=== PATIENT | female | born 1990 | race Caucasian/White ===

== ENCOUNTER 2020-04-22 10:12 | Outpatient (CLI) | payer OTHER, SELFPAY ==
--- NOTE | ~2020-04-22 | XR_ITS ---
EXAMINATION: XR hysterosalpingogram INDICATION: Infertility assessment TECHNIQUE: Hysterosalpingogram was performed by Dr. Dillon Barros MD with fluoroscopic guidance . I was present to obtain fluoroscopic images. Fluoroscopy exposure time was 0.4 minutes. The DAP for this procedure was 2.632 Gycm2. FINDINGS: Primer Boxer radiograph demonstrates an unremarkable pelvis. Fluoroscopic images demonstrate a no rmal appearing endometrial cavity which has been cannulated. Upon injection of contrast, both fallop bette tubes opacify and are normal in appearance. There is free spillage bilaterally. Uterus is withou t evidence of synechia. IMPRESSION: Patent fallopian tubes. Reviewed, dictated and finalized at location A. 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
== END 2020-04-22 10:13 | disposition home or self-care (01) ==
LOC: ANHIMG 10:19
PROVIDERS: PCP Nurse Practitioner Family; Visit Provider Obstetrics & Gynecology
DX: N97.9 Female infertility, unspecified (principal)
CPT/HCPCS: 58340; 74740; Q9966

== ENCOUNTER 2022-04-07 09:33 | Outpatient (CLI) | payer BC, SELFPAY ==
--- NOTE | 2022-04-07 10:00 | ECG_ITS ---
Measurements Intervals [place] Rate: 79 P: 19 GA: 134 QRS: -15 QRSD: 101 T: 26 QT: 363 QTc: 418 Interpretive Statements SINUS RHYTHM BORDERLINE R WAVE PROGRESSION, ANTERIOR LEADS BASELINE ARTIFACT- III BORDERLINE ECG NO PREVIOUS ECG AVAILABLE FOR COMPARISON Electronically Signed On 04-07-2022 10:38:50 [facility] [employer]MER by Lorenzo Cuevas D.O.
[2022-04-07 10:10] LABS: Hematocrit 37.5 % (37.0-47.0); Hemoglobin 12.2 g/dL (12.0-15.0); Mean Corpuscular HGB Conc 32.5 g/dl (32-36); Mean Corpuscular Hemoglobin 31.4 pg (26-34); Mean Corpuscular Volume 96.4 fl (80-100); Mean Platelet Volume 9.4 fl (7.4-10.4); Platelet Count Result 318 k/mm3 (150-375); Red Blood Count 3.89 M/mm3 (4.2-5.4); Red Cell Distribution Width 12.7 % (11.5-14.5)
[2022-04-07 10:22] LABS: Anion Gap 8 mmol/L (8-16); Blood Urea Nitrogen 12 mg/dL (7-17); Calcium 9.3 mg/dL (8.4-10.2); Carbon Dioxide 27 mmol/L (22-30); Chloride 102 mmol/L (98-107); Estimated Glomerular Filt Rate > 60; Glucose 95 mg/dL (65-110); Potassium 3.8 mmol/L (3.4-5.0); Sodium 137 mmol/L (137-145)
== END 2022-04-07 09:34 | disposition home or self-care (01) ==
LOC: ANHSURGERY 09:39
PROVIDERS: Anesthesiology; PCP Nurse Practitioner Family; Visit Provider Student in an Organized Health Care Education/Training Program
DX: Z01.810 Encounter for preprocedural cardiovascular examination (principal); Z01.812 Encounter for preprocedural laboratory examination; D25.9 Leiomyoma of uterus, unspecified; I10 Essential (primary) hypertension; Z79.899 Other long term (current) drug therapy; N93.9 Abnormal uterine and vaginal bleeding, unspecified
CPT/HCPCS: 36415; 80048; 84443; 85027; 86850; 86900; 86901; 93005

== ENCOUNTER 2022-04-09 00:43 | Day surgery (SDC) | payer BC, SELFPAY ==
[2022-04-03 08:31] VITALS: BMI 46.9
--- NOTE | 2022-04-03 08:40 | PC.NURSE ---
Report to the Outpatient Waiting Room, entrance under the green pavilion located off [facility], at time 12:30 on date 04/09/22. Planned Procedure Time: 2:30. Time changes happen often and if your time is changed the preop area will call you the afternoon before. - You and your visitor will be asked to self-screen and do not enter if you have any COVID symptoms. - Only one visitor is requested with a max of two and NO children visitors are allowed at this time. - The patient visitor may be requested to leave or wait in car when not with patient due to distancing restrictions. - A mask is optional within the hospital at this time. Patients may have clear liquids (water, carbonated beverages, clear teas, apple juice) until 3 hours prior to surgery with a maximum of 20 ounces. - No food from midnight until time of surgery Take the following medications with a SIP of water the morning of surgery: NONE DO NOT STOP ANY OF YOUR OTHER PRESCRIPTION MEDICATIONS PRIOR TO SURGERY EXCEPT THE FOLLOWING Medications to discontinue per physician: N/A Date to take last dose: N/A Please no make-up, nail [place], hairspray, perfume, deodorant, or body powder the day of surgery. No jewelry (including any body piercings) or valuables the day of surgery, leave them at home. Please take a shower or bath the night before, or the morning of, surgery with an antibacterial soap. Wear comfortable, loose fitting clothing. - Jewelry must be removed prior to entering the operating room. Rings and piercings that are not removed may be cut off. - The hospital will not accept responsibility for valuables. - Please leave all valuables, including medications, at home the day of surgery. If you are going home after surgery, a licensed otr driver must drive you home. - NO public transportation without another adult if you receive anesthesia. - We recommend that an adult stay with you for 24 hours following discharge. - We also recommend that you do not drive, make important decision, drink alcoholic beverages, or take any drugs that were not prescribed by your health care provider for at least 24 hours after your discharge time. Follow any additional instructions given to you from your surgeon. If you or anyone in your household have experienced Covid symptoms in the past week, please notify your surgeon or the nurse liaison at the phone number below for possible testing. Telephone instructions given to PT - PEPE ARIZMENDI and asked if any additional questions and then verbalized understanding. Patient advised to call surgeon office or pre surgery nurse liaison [phone] if any additional questions.
[2022-04-09] VITALS (11 sets, daily range): BP systolic 122–144; BP diastolic 75–94; PULSE 62–113; RESP 12–22; TEMP 36.3–36.7; O2SAT 99–100
--- NOTE | 2022-04-09 07:49 | PM.IMHP ---
H&P: HPI History of Present Illness Date/Time: 04/09/22 07:49 Chief Complaint: abnormal uterine bleeding uterine fibroid Narrative: ?32-year-old female here for robotic assisted hysterectomy for abnormal uterine bleeding.? Patient had pelvic ultrasound which showed uterine fibroids.? Patient has been taking oral contraceptive pills in continuous fashion.? Patient still has continuous breakthrough bleeding.? Patient states bleeding is improved but still requires a pad daily.? Patient is requesting hysterectomy.? Patient no longer desires fertility.? Patient has tried oral contraceptive pills and D&C in the past.? Patient is not interested in endometrial ablation. Review of Systems Cardiovascular: Cardiovascular: Denies chest pain, Denies leg edema, Denies palpitations, Denies dyspnea and Denies dyspnea on exertion Respiratory: Respiratory: Denies cough, Denies dyspnea and Denies dyspnea on exertion Gastrointestinal: Gastrointestinal: Denies abdominal pain, Denies constipation, Denies diarrhea, Denies nausea and Denies vomiting Genitourinary: Genitourinary: Denies hematuria, Denies urinary frequency, Denies dysuria, Denies pelvic pain, Denies urinary incontinence and Denies vaginal discharge Neurologic: Reports system reviewed and no additional complaints, except as documented Psychiatric: Psychiatric: Reports no additional psychiatric complaints Endocrine: Endocrine: Denies palpitations PMFSH Past Medical History Medical History Depression Herpes simplex disease Hypertension Surgical History Surgical History History of ankle surgery History of carpal tunnel release History of delivery History of tonsillectomy [place] teeth extracted Family History Family History Mother Hypertension Grandparent Hypertension Heart disease Father Heart disease Other Cerebrovascular accident Other Diabetes mellitus Social History Social History Smoking status: Never smoker Alcohol intake: current Alcohol use details: 2/MONTH Substance use: never Substance use type: does not use Living arrangements: with family Occupation/Education: occupation 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 Gender identity (if verbalized by the patient): Female Sexual Orientation (if Verbalized by the Patient): Straight or Heterosexual Spiritual care concerns: No Meds Home Medications and Allergies Home Medications Medication Instructions Recorded Confirmed Type bupropion HCl 150 mg tablet,12 hr 150 mg PO HS 03/16/22 04/03/22 History sustained-release (Wellbutrin SR) hydrochlorothiazide 25 mg tablet 25 mg PO DAILY 03/16/22 04/03/22 History metformin 500 mg tablet 500 mg PO HS 03/16/22 04/03/22 History phentermine 30 mg capsule 30 mg PO DAILY 03/16/22 04/03/22 History valacyclovir 500 mg tablet 500 mg PO HS 03/16/22 04/03/22 History (Valtrex) drospiren-e.estrad-l.mefol 3 1 tablet PO DAILY #84 tabs 03/20/22 04/03/22 Rx mg-0.02 mg-0.451 mg(24)/0.451 mg(4)tablet Allergies Allergy/AdvReac Type Severity Reaction Status Date / Time No Known Allergies Allergy Verified 04/07/22 08:48 Exam Const: General: no acute distress Eyes: EOM: EOMs intact bilaterally Neck: Neck: supple Thyroid: thyroid normal Chest: Breast/axilla inspection: normal inspection of the breasts Breast/axilla palpation: normal palpation of the breasts, normal palpation of the axillae and no axillary lymphadenopathy Resp: Effort & Inspection: normal respiratory effort Auscultation: clear to auscultation bilaterally Cardio: Rate: regular rate Rhythm: regular rhythm GI: Inspection: non-distended GI Palp: Yes Soft to palpation, No Tenderness to palpation present (GI) and No Guarding
--- NOTE | 2022-04-09 07:50 | WPDHPUPDATE1 ---
History and Physical Update Update Date/Time: 04/09/22 07:50 History and Physical has been reviewed, including an updated exam of the patient. There are NO changes in the patient's condition. Risks, benefits, and alternatives have been discussed and questions answered. Patient agrees to proceed with procedure.
[2022-04-09] MEDS: LACTATED RINGERS 1,000 ML 30 ML IV CONT ×2 (13:00→15:32)
[2022-04-09] MEDS: KETOROLAC 15 MG/ML VIAL (*BKC) IV PUSH (13:28)
[2022-04-09] MEDS: ACETAMINOPHEN 500 MG TABLET 1000 MG PO (13:28)
--- NOTE | 2022-04-09 13:45 | WPDANESEPPF ---
Anes - Initial Pre Proc Eval Procedure: Operation Date: 04/09/22 14:30 Proposed Procedures p Robotic Assisted Total Laparoscopic Hysterectomy with Bilateral Salpingectomy - Lenny Rose MD Date/Time: 04/09/22 13:45 Surgeon: Lenny Rose MD Pre Op Diagnosis: Uterine Fibroid Patient Data Age: 32 Gender: F Height: 1.65 m Weight: 129.5 kg Last Vital Signs Temp 97.3 F L 04/09/22 13:25 Pulse 83 04/09/22 13:25 Resp 16 04/09/22 13:25 BP 129/75 04/09/22 13:25 Pulse Ox 100 04/09/22 13:25 O2 Del Method Room Air 04/09/22 13:25 Allergies Allergy/AdvReac Type Severity Reaction Status Date / Time No Known Allergies Allergy Verified 04/09/22 13:23 Home Medications Medication Instructions Recorded Confirmed Type bupropion HCl 150 mg tablet,12 hr 150 mg PO HS 03/16/22 04/09/22 History sustained-release (Wellbutrin SR) hydrochlorothiazide 25 mg tablet 25 mg PO DAILY 03/16/22 04/09/22 History metformin 500 mg tablet 500 mg PO HS 03/16/22 04/09/22 History phentermine 30 mg capsule 30 mg PO DAILY 03/16/22 04/09/22 History valacyclovir 500 mg tablet 500 mg PO HS 03/16/22 04/09/22 History (Valtrex) drospiren-e.estrad-l.mefol 3 1 tablet PO DAILY #84 tabs 03/20/22 04/09/22 Rx mg-0.02 mg-0.451 mg(24)/0.451 mg(4)tablet Patient hx anesthesia problems: post op nausea/vomiting Family hx anesthesia problems: none Results Review: All pre-operative results and documents have been reviewed as part of the pre-operative evaluation. [facility] Past Medical History Medical History Depression Herpes simplex disease Hypertension Surgical History Surgical History History of ankle surgery History of carpal tunnel release History of delivery History of tonsillectomy [place] teeth extracted Family History Family History Mother Hypertension Grandparent Hypertension Heart disease Father Heart disease Other Cerebrovascular accident Other Diabetes mellitus Social History Social History Smoking status: Never smoker Alcohol intake: current Alcohol use details: 2/MONTH Substance use: never Substance use type: does not use Living arrangements: with family Occupation/Education: occupation 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 Gender identity (if verbalized by the patient): Female Sexual Orientation (if Verbalized by the Patient): Straight or Heterosexual Spiritual care concerns: No Anes - Eval Final PreProcedure Day of Procedure 04/09/22 13:45 Patient weight: morbidly obese Heart: regular rate and rhythm Lungs: clear to auscultation Airway: Mallampati scale class III Neurological: alert and oriented Last oral intake: >/= 8 hours ASA classification: III Emergent: no Anesthetic plan: proceed Anesthesia type and monitoring: general ETT and standard monitoring Results Review: All pre-operative results and documents have been reviewed as part of the pre-operative evaluation. Informed Consent: The patient's anesthetic plan and its attendant risks and benefits were discussed with the patient/family/POA. Questions were solicited and answers provided to the satisfaction of the patient/family/POA.
[2022-04-09] MEDS: SCOPOLAMINE 1.5 MG PATCH TRANSDERM (13:55)
[2022-04-09] MEDS: ceFAZolin 3 GM/D5W 100 ML 100 ML IVPB (14:01)
[2022-04-09] MEDS: LIDO 2%/EPINEPHRINE 1:100,000 50 ML VIAL 20 ML INFILTRATE (14:49)
--- NOTE | 2022-04-09 15:17 | W.PM.PROC2 ---
Procedure Note - Detailed Date of Procedure 04/09/22 Pre-op Diagnosis Uterine Fibroid abnormal uterine bleeding Post-op Diagnosis Same Procedure Performed robotic assisted total laparoscopic hysterectomy and bilateral salpingectomy 15 min lysis of adhesions Surgeon Lenny Rose MD Anesthesia General Indications AUB uterine fibrod Findings filmy adhesions noted between the uterine serosa and the pelvic sidewall and anterior abdominal wall. Omental adhesions to the anterior abdominal wall. Umbilical hernia noted. Congested pelvic vessels. Normal appearing fallopian tubes and ovaries. Description of Procedure After the patient was appropriately consented she was taken to the operating room where she was transferred to the table in a dorsal supine position. General anesthesia was then induced with endotracheal intubation. The patient was transferred to a dorsal lithotomy position using adjustable yellow-fin stirrups. Her position was adjusted for appropriate support of her lower back and lower extremities. The patient was prepped and draped. A transurethral steward catheter was place. The cervix was sequentially dilated and a Artemio fruit washer uterine manipulator placed in typical fashion about a 3 cm MUSTAPHA ring. Gloves were changed. After confirmation of a functioning orogastric tube, lidocaine was injected at Ruelas's point in the LUQ and a 5mm incision was made. A 5mm Optiview trocar was then inserted into the abdominal cavity under direct visualization and done so without complication. The abdomen was then insufflated with approximately 2-3L of CO2 establishing a pneumoperitoneum and the patient was placed in Trendelenburg position. Just above the umbilicus in the midline, a 8 mm incision made after injection of lidocaine and a 8 mm bladeless trocar advanced into the abdominal cavity under direct visualization without incident. We subsequently placed two robotic ports in a similar fashion, one in the left mid-quadrant and one in the right, 10cm lateral to the midline port. The camera ports visualization was limited due to omental adhesions at the site of the umbilical hernia. These adhesions were taken down with monopolar scissors. The robot was then docked. Attention was turned to the left pelvis. The left fallopian tube was removed by sequentially dividing the mesosalpinx towards the uterus sparing the ovary. The utero-ovarian ligament was desiccated and transected, as was the round ligament. The posterior peritoneal leaf was taken down to the MUSTAPHA ring. The anterior leaf was developed as well as the start of the bladder flap. The left uterine artery was then skeletonized and desiccated and transected just above the level of the MUSTAPHA ring. Attention was turned to the right pelvis. The right fallopian tube was removed by sequentially dividing the mesosalpinx towards the uterus sparing the ovary. The utero-ovarian ligament was desiccated and transected, as was the round ligament. The posterior peritoneal leaf was taken down to the MUSTAPHA ring. The anterior leaf was developed as well as the start of the bladder flap. The right uterine artery was then skeletonized and desiccated and transected just above the level of the MUSTAPHA ring. The bladder was then further dissected inferiorly over the level of the MUSTAPHA ring. A circumferential colpotomy was made using monopolar current. The uterus, cervix, bilateral tubes were then delivered transvaginally. I then placed a single figure of eight suture of 0-vicryl in the left corner of the vaginal cuff. I then re-approximated the colpotomy with a running #1 PDO Quill suture in 2 layers. Following this dissection, the abdomen and pelvis were copiously irrigated and all surgical sites found to be hemostatic. Skin sites were reapproximated with 4-0 Vicryl in a subcuticular fashion. Steri-Strips were placed. The patient tolerated the procedure well. Sponge, needle and instrument counts were correct x 2 and the patient was taken to re
[2022-04-09] MEDS: fentaNYL CITRATE INJ (*CRX) 100 MCG/2 ML VIAL 25 MCG IV PUSH ×8 (15:49→16:25)
--- NOTE | 2022-04-09 16:57 | PC.NURSE ---
This patient, Kat Craven, was received from PACU on 04/09/22 at 1657. Patient/family oriented to unit policies and routines
[2022-04-09] MEDS: DEXTROSE 5%/LACTATED RINGERS 1,000 ML 125 ML IV CONT (17:15)
[2022-04-09] MEDS: ONDANSETRON INJ 4 MG/2 ML VIAL IV PUSH (17:17)
[2022-04-09] MEDS: KETOROLAC 30 MG/ML VIAL (*BKC) IV PUSH (17:18)
[2022-04-09] MEDS: HYDROcodone/acetaminophen (*CRX) 5-325 MG TABLET 1 TAB PO (19:44)
[2022-04-09] MEDS: SIMETHICONE 80 MG TAB.CHEW ×2 (19:45→22:55)
[2022-04-09] MEDS: valACYclovir HCL 500 MG TABLET PO (22:53)
[2022-04-09] MEDS: SENNA/DOCUSATE SODIUM TABLET 2 TAB PO (22:53)
[2022-04-09] MEDS: buPROPion HCL XL (24 HR) 150 MG TABCR PO (22:53)
[2022-04-09] MEDS: metFORMIN HCL 500 MG TABLET PO (22:54)
[2022-04-09] MEDS: HYDROcodone/acetaminophen (*CRX) 10-325 MG TABLET 1 TAB PO (22:54)
[2022-04-10 02:20] VITALS: PULSE 79; RESP 19; O2SAT 100
[2022-04-10 04:00] VITALS: BP 128/77; PULSE 108; RESP 20; TEMP 36.7
[2022-04-10] MEDS: HYDROcodone/acetaminophen (*CRX) 10-325 MG TABLET 1 TAB PO ×2 (04:00→07:36)
[2022-04-10] MEDS: IBUPROFEN 600 MG TABLET PO ×2 (04:01→10:51)
[2022-04-10] MEDS: SIMETHICONE 80 MG TAB.CHEW ×3 (04:02→10:52)
[2022-04-10 05:08] LABS: Basophils Percent Auto 0.1 % (0.2-1.2); Hematocrit 30.5 % (37.0-47.0); Immature Granulocyte Absolute 0.03 K/mm3 (0.00-0.031); Immature Granulocyte Percent A 0.3 % (0-0.5); Lymphocytes Absolute Auto 1.03 K/mm3 (0.9-3.2); Lymphocytes Percent Auto 8.7 % (18.3-44.2); Mean Corpuscular HGB Conc 32.8 g/dl (32-36); Mean Corpuscular Volume 94.4 fl (80-100); Mean Platelet Volume 10.2 fl (7.4-10.4); Monocytes Absolute Auto 0.5 K/mm3 (0.1-0.6); Monocytes Percent Auto 3.9 % (2.6-8.5); Neutrophils Absolute Auto 10.3 K/mm3 (1.3-6.7); Platelet Count Result 376 k/mm3 (150-375); Red Blood Count 3.23 M/mm3 (4.2-5.4); Red Cell Distribution Width 12.4 % (11.5-14.5); White Blood Count 11.9 K/mm3 (4.5-10.0)
[2022-04-10 05:29] LABS: Chloride 99 mmol/L (98-107)
[2022-04-10 05:32] LABS: Anion Gap 7 mmol/L (8-16); Blood Urea Nitrogen 11 mg/dL (7-17); Calcium 8.8 mg/dL (8.4-10.2); Carbon Dioxide 24 mmol/L (22-30); Estimated CRCL calculation 119 ml/min; Estimated Glomerular Filt Rate > 60; Glucose 120 mg/dL (65-110); Potassium 4.2 mmol/L (3.4-5.0); Sodium 130 mmol/L (137-145)
--- NOTE | 2022-04-10 07:28 | PM.DS ---
DS: Admitting Diagnosis Discharge Date 04/10/22 Admitting Diagnosis Abnormal uterine bleeding fibroid uterus DS: Discharge Diagnosis Discharge Diagnosis (1) Abnormal uterine bleeding: Code(s): N93.9 - Abnormal uterine and vaginal bleeding, unspecified Status: Acute (2) Uterine fibroid: Code(s): D25.9 - Leiomyoma of uterus, unspecified Status: Acute DS: Summary Hospital Course Hospital Course: Kat Craven was admitted after robotic assisted total laparoscopic hysterectomy and bilateral salpingectomy for abnormal uterine bleeding. The above procedure was performed with no complications. She is doing well post op. She states her pain is well controlled with PO medications. She reports minimal bleeding. She is ambulating up to the chair. Her steward catheter was removed. She is tolerating PO without N/V. She reports passing flatus. Status at Discharge Overall status at discharge: patient is progressing back to baseline Time Spent with Patient Time attestation: Total time spent providing and/or coordinating discharge services: Time spent: Less than 30 minutes Exam Const: General: comfortable and no acute distress Limitations: no limitations Resp: Effort & Inspection: normal respiratory effort Auscultation: clear to auscultation bilaterally Cardio: Rate: regular rate Rhythm: regular rhythm GI: Inspection: non-distended GI Palp: Yes Soft to palpation, Yes Tenderness to palpation present (GI) (milder tenderness to deep palpation) and No Guarding due to palpation present (GI) Auscultation: normal bowel sounds Other: incisions C/D/I covered with dermabond Urinary Catheter: Urinary Catheter: urine clear Skin: General skin exam: normal color Extrem: General: normal to inspection Psych: Mental Status: mental status grossly normal Affect: normal affect DS: Data Data Completed and Pending Pending studies at discharge: Pending at discharge 04/09/22 15:08 Surgical [PTH] Routine Labs on day of discharge: Labs from last 24 hours 04/10/22 04/10/22 04:06 04:06 WBC 11.9 H RBC 3.23 L Hgb 10.0 L Hct 30.5 L MCV 94.4 MCH 31.0 MCHC 32.8 RDW 12.4 Plt Count 376 H MPV 10.2 Immature Gran % (Auto) 0.3 Neut % (Auto) 87.0 H Lymph % (Auto) 8.7 L [place] % (Auto) 3.9 Eos % (Auto) 0.0 Baso % (Auto) 0.1 L Lymph # (Auto) 1.03 [place] # (Auto) 0.5 Eos # (Auto) 0.0 Baso # (Auto) 0.0 Abs Immat Gran (auto) 0.03 Absolute Neuts (auto) 10.3 H Absolute Nucleated RBC 0.0 Nucleated RBC % 0.0 Sodium 130 L Potassium 4.2 Chloride 99 Carbon Dioxide 24 Anion Gap 7 L BUN 11 Creatinine 0.80 Estim Creat Clear Calc 119 Estimated GFR > 60 Glucose 120 H Calcium 8.8 Discharge Plan Discharge Patient Disposition: Home, Self-Care Discharge Instructions: Remove the Scopolamine patch that was placed behind your ear in 72 hours or less. Wash your hands after touching. Patient Instructions: Laparoscopic Hysterectomy (DC) Stand Alone Forms: General Discharge Instructions Follow-up/Referrals: Lenny Rose MD [Physician] - Discharge Medications: New oxycodone-acetaminophen 5-325 mg tablet 1 tablet PO Q6H PRN (Reason: pain) Qty: 30 0RF ibuprofen 600 mg tablet 600 mg PO Q6H PRN (Reason: pain) Qty: 30 0RF sennosides-docusate sodium [Senna with Docusate Sodium] 8.6-50 mg tablet 1 tab-cap PO BID Qty: 30 0RF Continued hydrochlorothiazide 25 mg tablet 25 mg PO DAILY phentermine 30 mg capsule 30 mg PO DAILY Rx Instructions: must administer 2 hours after breakfast valacyclovir [Valtrex] 500 mg tablet 500 mg PO HS bupropion HCl [Wellbutrin SR] 150 mg tablet sustained-release 12 hr 150 mg PO HS metformin 500 mg tablet 500 mg PO HS drospirenone-e.estradiol-lm.FA 3-0.02-0.451 mg (24) (4) tablet 1 tablet PO DAILY Qty: 84 2RF Rx Instructions: patient ta
[2022-04-10] MEDS: hydroCHLOROthiazide 25 MG TABLET PO (07:38)
[2022-04-10 07:49] VITALS: BP 109/61; PULSE 76; RESP 18; TEMP 36.8; O2SAT 100
[2022-04-10] MEDS: HYDROcodone/acetaminophen (*CRX) 5-325 MG TABLET 1 TAB PO (10:50)
== END 2022-04-10 11:20 | disposition home or self-care (01) ==
LOC: ANHSURGERY 14:59 → ANHOB2 16:55
PROVIDERS: PCP Nurse Practitioner Family; Visit Provider Student in an Organized Health Care Education/Training Program
PROC: (CPT 58571; principal; 2022-04-09 14:30)
DX: N93.9 Abnormal uterine and vaginal bleeding, unspecified (principal); D25.1 Intramural leiomyoma of uterus; N73.6 Female pelvic peritoneal adhesions (postinfective); I10 Essential (primary) hypertension; B00.9 Herpesviral infection, unspecified; F32.A Depression, unspecified; E66.01 Morbid (severe) obesity due to excess calories; Z68.42 Body mass index [BMI] 45.0-49.9, adult
CPT/HCPCS: 58571; S2900; 36415; 80048; 85025; 88307; 99199; A9270; J0690; J1100; J1885; J2250; J2405; J2704; J2710; J3010; J7030; J7120; J7121

== ENCOUNTER 2023-03-12 17:00 | Emergency (ER) | payer BC, SELFPAY ==
[2023-03-12 17:28] VITALS: BP 141/91; PULSE 69; RESP 16; TEMP 36.8; O2SAT 100
== END 2023-03-12 23:34 | disposition left against medical advice (07) ==
LOC: ANHED 20:14
PROVIDERS: PCP Nurse Practitioner Family
DX: R10.9 Unspecified abdominal pain (principal)
CPT/HCPCS: 99199

== ENCOUNTER 2023-07-10 19:03 | Observation (INO) | payer BC, OTHER, SELFPAY ==
--- NOTE | 2023-07-10 19:09 | PM.IMHP ---
H&P: HPI History of Present Illness Date/Time: 07/10/23 20:00 Chief Complaint: Symptomatic cholelithiasis. Narrative: This is a very pleasant 33-year-old female with history of symptomatic cholelithiasis, hypertension, and obstructive sleep apnea who is being directly admitted to the medical floor from the emergency department at an outside facility with symptomatic cholelithiasis. The patient gives the following history. For upwards of 10 year she has had intermittent episodes of symptomatic cholelithiasis for which she has been seen by a surgeon in [place] though there have never been any plans for surgery. Last evening she had fast food for dinner and several hours thereafter she developed colicky right upper quadrant pain associated with severe nausea and dry heaves. She presented to the outside emergency department at about 01:00 for evaluation. Labs were significant for WBC count of 8.8, hemoglobin 11.5, platelet 333, sodium 137, potassium 3.2, BUN 1, creatinine 1.06, glucose 118, lipase 37, AST 13, ALT 22, alkaline phosphatase 86, total bilirubin 0.3. CT scan of the abdomen and pelvis showed multiple stones in the gallbladder with what appears to be an obstructing stone at the neck of the gallbladder. No gallbladder wall thickening or pericholecystic fluid was noted. Transfer was initiated to [place] for consultation with General surgery. She received Toradol, Zofran, and Dilaudid at the outside facility and has minimal discomfort at this time. She denies fever and vomiting. Review of Systems Review of Systems: 12 systems were reviewed and are negative except for as per HPI. ON LICENSE OF [facility] Past Medical History Medical History (Updated 07/10/23 @ 22:57 by Nelda Sosa PA-C) Depression Herpes simplex disease Hypertension Obstructive sleep apnea on CPAP Surgical History Surgical History (Updated 07/10/23 @ 22:56 by Nelda Sosa PA-C) History of ankle surgery History of carpal tunnel release History of delivery History of hysterectomy (04/2021) History of tonsillectomy History of wisdom tooth extraction [place] teeth extracted Family History Family History Mother Hypertension Grandparent Hypertension Heart disease Father Heart disease Other Cerebrovascular accident Other Diabetes mellitus Social History Social History (Updated 07/10/23 @ 22:56 by Nelda Sosa PA-C) Social History: Surrogate medical decision maker: Colby Craven, spouse. Code status: Full code. Smoking status: Never smoker Alcohol intake: current Alcohol use details: 2/MONTH Substance use: never Substance use type: does not use Do You Feel Safe in your Home?: Yes Lack of Transportation: No Lack of Food: Never True Current Housing: I Have Housing Concerned About Future Housing: No Difficulty Paying Gas/Electric Bills: No Difficulty Paying for Meds: No Currently Unemployed: No Education: Bachelor's Degree Difficulty w/ Childcare or Family Care: No Living arrangements: with family Occupation/Education: occupation Additional occupation/education comments: [employer] Spiritual care concerns: No Meds Home Medications and Allergies Home Medications Medication Instructions Recorded Confirmed Type bupropion HCl 150 mg tablet,12 hr 150 mg PO HS 03/16/22 07/10/23 History sustained-release (Wellbutrin SR) hydrochlorothiazide 25 mg tablet 25 mg PO DAILY 03/16/22 07/10/23 History valacyclovir 500 mg tablet 500 mg PO HS 03/16/22 07/10/23 History (Valtrex) norethindrone (contraceptive) 0.35 0.35 mg PO DAILY #84 tabs 04/19/23 07/10/23 Rx mg tablet sertraline 25 mg tablet 25 mg PO QAM 04/19/23 07/10/23 History meloxicam 7.5 mg tablet 7.5 mg PO DAILY 05/12/23 07/10/23 History magnesium oxide 400 mg PO QHS 07/10/23 07/10/23 History multivitamin with folic acid 400 1 tablet PO DAILY 07/10/23 07/10/23 History
--- NOTE | 2023-07-10 19:36 | ADMGEN ---
This patient, Kat Craven, was admitted to Medical Room 341-01. Patient/family oriented to hospital policies and general routines including ID bracelet, bed and alarms, visiting hours, pain management, procedures, bathroom and other care routines, personal items, smoking policy, room service/diet, and visiting hours. Information on how to activate the Rapid Response Team has been discussed. Patient/Family are encouraged to report perceived risks to care and to ask questions if they do not understand what they are told or what they should do.
[2023-07-10 19:43] VITALS: BMI 49.2
[2023-07-10 19:45] VITALS: BP 134/77; PULSE 69; RESP 18; TEMP 36.6; O2SAT 99
[2023-07-10] MEDS: MORPHINE SULFATE (*CRX) 2 MG/ML INJ IV PUSH (21:27)
[2023-07-10 22:08] VITALS: PULSE 68; RESP 19; O2SAT 97
[2023-07-11 02:39] VITALS: RESP 16
[2023-07-11 04:30] LABS: Hematocrit 32.2 % (37.0-47.0); Hemoglobin 10.3 g/dL (12.0-15.0); Mean Corpuscular Hemoglobin 31.8 pg (26-34); Mean Corpuscular Volume 99.4 fl (80-100); Mean Platelet Volume 9.5 fl (7.4-10.4); Platelet Count Result 231 k/mm3 (150-375); Red Blood Count 3.24 M/mm3 (4.2-5.4); Red Cell Distribution Width 12.9 % (11.5-14.5); White Blood Count 6.3 K/mm3 (4.5-10.0)
[2023-07-11 04:42] LABS: Prothrombin Time 14.2 Seconds (11.1-14.7)
[2023-07-11 04:43] LABS: Partial Thromboplastin Time 29.6 Seconds (22.3-36.8)
[2023-07-11 04:45] LABS: Alanine Aminotransferase 14 U/L (6-35); Albumin Level 3.6 g/dL (3.5-5.1); Alkaline Phosphatase 58 U/L (38-126); Anion Gap 2 mmol/L (4-12); Aspartate Amino Transferase 17 U/L (14-36); Bilirubin,Total 0.6 mg/dL (0.2-1.3); Blood Urea Nitrogen 13 mg/dL (7-17); Calcium 8.8 mg/dL (8.4-10.2); Carbon Dioxide 28 mmol/L (22-30); Chloride 109 mmol/L (98-107); Estimated CRCL calculation 121 ml/min; Estimated Glomerular Filt Rate > 60; Glucose 93 mg/dL (65-110); Magnesium 2.1 mg/dL (1.6-2.3); Potassium 3.7 mmol/L (3.4-5.0); Sodium 139 mmol/L (137-145)
[2023-07-11 05:09] VITALS: BP 117/57; PULSE 58; RESP 18; TEMP 36.6; O2SAT 100
[2023-07-11] MEDS: MORPHINE SULFATE (*CRX) 2 MG/ML INJ IV PUSH (06:22)
--- NOTE | 2023-07-11 08:48 | PM.IMPN ---
Progress Note: A&P Assessment and Plan (1) Symptomatic cholelithiasis: Code(s): K80.20 - Calculus of gallbladder without cholecystitis without obstruction Status: Acute (2) Obstructive sleep apnea on CPAP: Code(s): G47.33 - Obstructive sleep apnea (adult) (pediatric) Status: Acute (3) Hypertension: Code(s): I10 - Essential (primary) hypertension Status: Acute Plan The patient presented to the emergency department the outside facility for evaluation of right upper quadrant pain last evening . She reports that for over 10 years he had intermittent episodes of biliary colic for which she had seen a surgeon in [place] the other never been a plan for surgery. Last evening she ate fast food for dinner and several hours later she developed colicky right upper quadrant pain associated with severe nausea and dry heaves. She presents to the ED at about 1:00 a.m. for evaluation. Labs were significant for WBC count of 8.8 hemoglobin of 11.5 platelet 333 sodium 137 potassium 3.2 BUN 1 creatinine 1 glucose 118 lipase 37 AST 13 ALT 22 alkaline phosphatase [address] scan of the abdomen pelvis showed multiple stones in the gallbladder with what appears to be an obstructing stone at the neck of the gallbladder. No gallbladder wall thickening or pericholecystic fluid was noted. She was then transferred to [facility] for general surgery consultation. She has symptomatic cholelithiasis in will be NPO after midnight for possible cholecystectomy. General surgery has been consulted here and await their evaluation. Analgesics and antiemetics are available as needed. Hypertension Depression CHRIS on CPAP DVT prophylaxis SCDs Code status full code Subjective Date/time seen: 07/11/23 08:48 Interval history: Mild right upper quadrant discomfort persist no nausea no vomiting. Had been NPO since yesterday. Did have some symptoms when she ate last night Review of Systems Review of Systems: All systems reviewed & are unremarkable except as noted in HPI and below Exam Narrative: General: Nontoxic-appearing female sitting up in bed in no acute distress. HEENT: PERRL, EOMI. Sclera anicteric. Tacky mucous membranes. Neck: Supple. Respiratory: Lungs are clear to auscultation bilaterally. Cardiovascular: Regular rate and rhythm with S1-S2. Gastrointestinal: Abdomen is soft and obese with positive bowel sounds. She is tender to deeper palpation the right upper quadrant. Negative Shafer sign. No guarding or rebound tenderness. Skin: Warm and dry. Extremities: No cyanosis, clubbing, or edema. Radial and pedal pulses intact. Neurological: Alert. Cranial nerves 2-12 are grossly intact. No gross focal deficits to casual conversation. Psychiatric: Pleasant and cooperative with normal mood and affect. Judgment and insight intact. Objective Data Vital Signs Vital Signs: Vital Signs - 24 hr 07/10/23 19:45 07/10/23 22:08 07/10/23 20:00 Temperature 98 F Pulse Rate 69 68 Respiratory Rate 18 19 Blood Pressure 134/77 Pulse Oximetry 99 97 Oxygen Delivery Room Air Room Air 07/11/23 02:39 07/11/23 05:09 Temperature 98 F Pulse Rate 58 L Respiratory Rate 16 18 Blood Pressure 117/57 L Pulse Oximetry 100 Oxygen Delivery Room Air Intake/Output Intake/Output: Intake & Output 07/08/23 07/09/23 07/10/23 07/11/23 23:59 23:59 23:59 23:59 Intake Total 290 Output Total 300 Balance -10 Meds/Results Medications: Active Medications Generic Name Dose Route Start Last Admin Trade Name Freq PRN Reason Stop Dose Admin Acetaminophen 650 mg 07/10/23 19:03 Acetaminophen 325 Mg Tablet PO Q4H PRN Mild Pain (1-3) or Fever Morphine Sulfate 2 mg 07/10/23 19:03 07/11/23 06:22 Morphine Sulfate (*Crx) 2 Mg/Ml Inj IV PUSH 2 mg Q4H PRN Administration Pain Rated 7-10 Ondansetron HCl 4 mg 07/10/23 22:59 Ondansetron Inj 4 Mg/2 Ml
[2023-07-11] MEDS: ACETAMINOPHEN 325 MG TABLET 650 MG PO (12:28)
[2023-07-11] MEDS: ONDANSETRON INJ 4 MG/2 ML VIAL IV PUSH (12:28)
[2023-07-11 14:00] VITALS: BP 135/75; PULSE 70; RESP 18; TEMP 36.5; O2SAT 100
--- NOTE | 2023-07-11 14:05 | PM.CNGS ---
Assessment and Plan Assessment and plan (1) Acute calculous cholecystitis: Code(s): K80.00 - Calculus of gallbladder with acute cholecystitis without obstruction Status: Acute Assessment and Plan: I have reviewed the CT report and other paperwork that was transferred over to us from [place]. Patient has evidence of a gallstone lodged at the neck of her gallbladder. She still continued to have pain yesterday while attempting to eat. I have discussed with her that she is more likely to go on having continued pain and will not do well with nonoperative management. I have recommended laparoscopic cholecystectomy, possible open. This will be planned for tomorrow. Will allow clear liquids today and repeat labs tomorrow morning. NPO after midnight for planned surgery tomorrow. (2) Hypertension: Code(s): I10 - Essential (primary) hypertension Status: Acute (3) Obstructive sleep apnea on CPAP: Code(s): G47.33 - Obstructive sleep apnea (adult) (pediatric) Status: Acute History of Present Illness Consult details Consult date: 07/11/23 Reason for consult: other (Acute cholecystitis) Requesting physician: Nelda Sosa PA-C Narrative: This is a 33-year-old woman who I am asked to see for acute calculous cholecystitis. She presented to [place] [facility] yesterday with epigastric abdominal pain that started Wednesday night. She had eaten [employer] for dinner late Wednesday night and pain started shortly after. She was experiencing some nausea but no vomiting. The patient has had intermittent pains like this over past 10 years, pain became so severe overnight that she decided to go to the emergency department. She has seen a surgeon in [place] but had not decided on proceeding with surgery yet. Her workup in the emergency department showed evidence acute calculous cholecystitis on CT. Her labs were otherwise unremarkable. She was transferred to [facility] for further treatment. Review of Systems Review of Systems: All systems reviewed & are unremarkable except as noted in HPI and below Constitutional: Constitutional: Reports as per HPI Eyes: Eyes: Denies change in vision ENT: Denies hearing loss, Denies neck pain and Denies sore throat Cardiovascular: Cardiovascular: Denies chest pain and Denies dyspnea Respiratory: Respiratory: Denies cough, Denies dyspnea and Denies wheezing Gastrointestinal: Gastrointestinal: Reports as per HPI Genitourinary: Genitourinary: Denies hematuria and Denies dysuria Musculoskeletal: Musculoskeletal: Denies arthralgias, Denies joint swelling and Denies neck pain Allergic/Immunologic: Allergic/Immunologic: Denies wheezing PMFSH Past Medical History Medical History (Updated 07/11/23 @ 14:12 by Ty Douglas DO) Depression Herpes simplex disease Hypertension Obstructive sleep apnea on CPAP Surgical History Surgical History (Updated 07/10/23 @ 22:56 by Nelda Sosa PA-C) History of ankle surgery History of carpal tunnel release History of delivery History of hysterectomy (04/2021) History of tonsillectomy History of wisdom tooth extraction [place] teeth extracted Family History Family History Mother Hypertension Grandparent Hypertension Heart disease Father Heart disease Other Cerebrovascular accident Other Diabetes mellitus Social History Social History (Updated 07/10/23 @ 22:56 by Nelda Sosa PA-C) Social History: Surrogate medical decision maker: Colby Craven, spouse. Code status: Full code. Smoking status: Never smoker Alcohol intake: current Alcohol use details: 2/MONTH Substance use: never Substance use type: does not use Do You Feel Safe in your Home?: Yes Lack of Transportation: No Lack of Food: Never True Current Housing: I Have Housing Concerned About Future Housing: No [place]
[2023-07-11] MEDS: HYDROcodone/acetaminophen (*CRX) 5-325 MG TABLET 1 TAB PO (17:53)
[2023-07-11] MEDS: LACTATED RINGERS 1,000 ML 75 ML IV CONT (17:56)
[2023-07-11 21:12] VITALS: BP 126/72; PULSE 85; RESP 18; TEMP 36.3; O2SAT 100
[2023-07-11] MEDS: buPROPion HCL SR (12 HR) 150 MG TAB PO (21:14)
[2023-07-11 23:10] VITALS: PULSE 67; RESP 15; O2SAT 97
[2023-07-12] VITALS (12 sets, daily range): BP systolic 111–156; BP diastolic 53–88; PULSE 54–88; RESP 11–21; TEMP 36.1–36.4; O2SAT 96–100
[2023-07-12] MEDS: HYDROcodone/acetaminophen (*CRX) 5-325 MG TABLET 1 TAB PO ×2 (00:02→18:49)
[2023-07-12 05:37] LABS: Hematocrit 32.2 % (37.0-47.0); Hemoglobin 10.3 g/dL (12.0-15.0); Mean Corpuscular Hemoglobin 31.9 pg (26-34); Mean Corpuscular Volume 99.7 fl (80-100); Mean Platelet Volume 9.5 fl (7.4-10.4); Platelet Count Result 221 k/mm3 (150-375); Red Blood Count 3.23 M/mm3 (4.2-5.4); Red Cell Distribution Width 12.8 % (11.5-14.5); White Blood Count 6.2 K/mm3 (4.5-10.0)
[2023-07-12] MEDS: MORPHINE SULFATE (*CRX) 2 MG/ML INJ IV PUSH ×2 (05:46→22:36)
[2023-07-12 05:52] LABS: Alanine Aminotransferase 15 U/L (6-35); Albumin Level 3.6 g/dL (3.5-5.1); Alkaline Phosphatase 58 U/L (38-126); Anion Gap 2 mmol/L (4-12); Aspartate Amino Transferase 18 U/L (14-36); Bilirubin,Total 0.6 mg/dL (0.2-1.3); Blood Urea Nitrogen 9 mg/dL (7-17); Calcium 8.7 mg/dL (8.4-10.2); Carbon Dioxide 27 mmol/L (22-30); Chloride 107 mmol/L (98-107); Estimated CRCL calculation 137 ml/min; Estimated Glomerular Filt Rate > 60; Glucose 86 mg/dL (65-110); Lipase 44 U/L (23-300); Potassium 3.5 mmol/L (3.4-5.0); Sodium 136 mmol/L (137-145)
[2023-07-12] MEDS: LACTATED RINGERS 1,000 ML 75 ML IV CONT (08:16)
--- NOTE | 2023-07-12 09:31 | PM.IMPN ---
Progress Note: A&P Assessment and Plan (1) Symptomatic cholelithiasis: Code(s): K80.20 - Calculus of gallbladder without cholecystitis without obstruction Status: Acute (2) Obstructive sleep apnea on CPAP: Code(s): G47.33 - Obstructive sleep apnea (adult) (pediatric) Status: Acute (3) Hypertension: Code(s): I10 - Essential (primary) hypertension Status: Acute Plan The patient presented to the emergency department the outside facility for evaluation of right upper quadrant pain last evening . She reports that for over 10 years he had intermittent episodes of biliary colic for which she had seen a surgeon in [place] the other never been a plan for surgery. Last evening she ate fast food for dinner and several hours later she developed colicky right upper quadrant pain associated with severe nausea and dry heaves. She presents to the ED at about 1:00 a.m. for evaluation. Labs were significant for WBC count of 8.8 hemoglobin of 11.5 platelet 333 sodium 137 potassium 3.2 BUN 1 creatinine 1 glucose 118 lipase 37 AST 13 ALT 22 alkaline phosphatase [address] scan of the abdomen pelvis showed multiple stones in the gallbladder with what appears to be an obstructing stone at the neck of the gallbladder. No gallbladder wall thickening or pericholecystic fluid was noted. She was then transferred to [facility] for general surgery consultation. She has symptomatic cholelithiasis. General surgery has been consulted. Sees plan for cholecystectomy today. Analgesics and antiemetics are available as needed. Hypertension Depression CHRIS on CPAP DVT prophylaxis SCDs Code status full code Subjective Date/time seen: 07/12/23 09:31 Interval history: She tried some Jell-O yesterday with recurrence of pain and right upper quadrant. Currently NPO for planned cholecystectomy today. Review of Systems Review of Systems: All systems reviewed & are unremarkable except as noted in HPI and below Exam Narrative: General: Nontoxic-appearing female sitting up in bed in no acute distress. HEENT: PERRL, EOMI. Sclera anicteric. Tacky mucous membranes. Neck: Supple. Respiratory: Lungs are clear to auscultation bilaterally. Cardiovascular: Regular rate and rhythm with S1-S2. Gastrointestinal: Abdomen is soft and obese with positive bowel sounds. She is tender to deeper palpation the right upper quadrant. Negative Shafer sign. No guarding or rebound tenderness. Skin: Warm and dry. Extremities: No cyanosis, clubbing, or edema. Radial and pedal pulses intact. Neurological: Alert. Cranial nerves 2-12 are grossly intact. No gross focal deficits to casual conversation. Psychiatric: Pleasant and cooperative with normal mood and affect. Judgment and insight intact. Objective Data Vital Signs Vital Signs: Vital Signs - 24 hr 07/11/23 14:00 07/11/23 21:12 07/11/23 23:10 Temperature 97.7 F 97.3 F L Pulse Rate 70 85 67 Respiratory Rate 18 18 15 Blood Pressure 135/75 126/72 Pulse Oximetry 100 100 97 Oxygen Delivery Room Air 07/11/23 20:00 07/12/23 04:47 07/12/23 05:41 Temperature 97.5 F L Pulse Rate 54 L Respiratory Rate 17 18 Blood Pressure 126/71 Pulse Oximetry 100 Oxygen Delivery Room Air Room Air 07/12/23 08:18 Temperature Pulse Rate Respiratory Rate Blood Pressure Pulse Oximetry Oxygen Delivery Room Air Intake/Output Intake/Output: Intake & Output 07/09/23 07/10/23 07/11/23 07/12/23 23:59 23:59 23:59 23:59 Intake Total 1080 1300 Output Total 750 1400 Balance 330 -100 Meds/Results Medications: Active Medications Generic Name Dose Route Start Last Admin Trade Name Freq PRN Reason Stop Dose Admin Acetaminophen 650 mg 07/10/23 19:03 07/11/23 12:28 Acetaminophen 325 Mg Tablet PO 650 mg Q4H PRN Administration Mild Pain (1-3) or Fever Hydrocodone Bitart/Acetaminophen 1 tab 07/11/23 17:38 07/12/23 00:02
--- NOTE | 2023-07-12 12:17 | ECG_ITS ---
SEE SCANNED COPY FOR CONFIRMED REPORT MTDD
--- NOTE | 2023-07-12 15:27 | PC.NURSE ---
Patient off of unit to surgery
[2023-07-12] MEDS: LACTATED RINGERS 1,000 ML 30 ML IV CONT ×2 (15:30→17:17)
[2023-07-12 15:38] LABS: Beta HCG Quantitative < 2.39 mIU/ML
[2023-07-12] MEDS: SCOPOLAMINE 1 MG PATCH 1 PATCH TRANSDERM (15:38)
--- NOTE | 2023-07-12 15:55 | WPDANESEPPF ---
Anes - Initial Pre Proc Eval Procedure: Operation Date: 07/12/23 16:30 Proposed Procedures p Laparoscopic Cholecystectomy,[place] Open - Ty Douglas DO Date/Time: 07/12/23 15:55 Surgeon: Sean Alcantar MD Pre Op Diagnosis: Cholelithiasis Patient Data Age: 33 Gender: F Height: 1.65 m Weight: 134.4 kg Last Vital Signs Temp 36.1 C L 07/12/23 15:33 Pulse 54 L 07/12/23 05:41 Resp 18 07/12/23 05:41 BP 126/71 07/12/23 05:41 Pulse Ox 100 07/12/23 05:41 O2 Del Method Room Air 07/12/23 08:18 Allergies Allergy/AdvReac Type Severity Reaction Status Date / Time No Known Allergies Allergy Verified 05/12/23 09:04 Home Medications Medication Instructions Recorded Confirmed Type bupropion HCl 150 mg tablet,12 hr 150 mg PO HS 03/16/22 07/10/23 History sustained-release (Wellbutrin SR) hydrochlorothiazide 25 mg tablet 25 mg PO DAILY 03/16/22 07/10/23 History valacyclovir 500 mg tablet 500 mg PO HS 03/16/22 07/10/23 History (Valtrex) sertraline 25 mg tablet 25 mg PO QAM 04/19/23 07/10/23 History meloxicam 7.5 mg tablet 7.5 mg PO DAILY 05/12/23 07/10/23 History magnesium oxide 400 mg PO QHS 07/10/23 07/10/23 History multivitamin with folic acid 400 1 tablet PO DAILY 07/10/23 07/10/23 History mcg tablet (One Daily Multivitamin) sucralfate 1 gram tablet 1 mg PO TID 07/10/23 07/10/23 History norethindrone (contraceptive) 0.35 0.35 mg PO DAILY #84 tabs 07/12/23 Rx mg tablet Laboratory Tests 07/12/23 05:21 WBC 6.2 K/mm3 (4.5-10.0) RBC 3.23 L M/mm3 (4.2-5.4) Hgb 10.3 L g/dL (12.0-15.0) Hct 32.2 L % (37.0-47.0) MCV 99.7 fl (80-100) MCH 31.9 pg (26-34) MCHC 32.0 g/dl (32-36) RDW 12.8 % (11.5-14.5) Plt Count 221 k/mm3 (150-375) MPV 9.5 fl (7.4-10.4) Sodium 136 L mmol/L (137-145) Potassium 3.5 mmol/L (3.4-5.0) Chloride 107 mmol/L (98-107) Carbon Dioxide 27 mmol/L (22-30) Anion Gap 2 L mmol/L (4-12) BUN 9 mg/dL (7-17) Creatinine 0.70 mg/dL (0.7-1.0) Estim Creat Clear Calc 137 ml/min Estimated GFR > 60 (59 - ) Glucose 86 mg/dL (65-110) Calcium 8.7 mg/dL (8.4-10.2) Total Bilirubin 0.6 mg/dL (0.2-1.3) AST 18 U/L (14-36) ALT 15 U/L (6-35) Alkaline Phosphatase 58 U/L (38-126) Total Protein 6.0 L g/dL (6.3-8.2) Albumin 3.6 g/dL (3.5-5.1) Lipase 44 U/L (23-300) Beta HCG, Quant < 2.39 mIU/ML Patient hx anesthesia problems: none Family hx anesthesia problems: none Results Review: All pre-operative results and documents have been reviewed as part of the pre-operative evaluation. [facility] Past Medical History Medical History Depression Herpes simplex disease Hypertension Obstructive sleep apnea on CPAP Surgical History Surgical History History of ankle surgery History of carpal tunnel release History of delivery History of hysterectomy (04/2021) History of tonsillectomy History of wisdom tooth extraction [place] teeth extracted Family History Family History Mother Hypertension Grandparent Hypertension Heart disease Father Heart disease Other Cerebrovascular accident Other Diabetes mellitus Social History Social History Social History: Surrogate medical decision maker: Colby Cerdahareshmurali, spouse. Code status: Full code. Smoking status: Never smoker Alcohol intake: current Alcohol use details: 2/MONTH Substance use: never Substance use type: does not use Do You Feel Safe in your Home?: Yes Lack of Transportation: No Lack of Food: Never True Current Housing: I Have Housing Concerned About Future Housing: No Difficulty Paying Gas/Electric B
--- NOTE | 2023-07-12 15:57 | WPDHPUPDATE1 ---
History and Physical Update Update Date/Time: 07/12/23 15:57 History and Physical has been reviewed, including an updated exam of the patient. There are NO changes in the patient's condition. Risks, benefits, and alternatives have been discussed and questions answered. Patient agrees to proceed with procedure.
[2023-07-12] MEDS: ceFAZolin 3 GM/D5W 100 ML 100 ML IVPB (16:12)
[2023-07-12] MEDS: BUPIVACAINE/EPINEPHRINE 0.5% 10 ML VIAL 30 ML INFILTRATE (16:47)
[2023-07-12] MEDS: KETOROLAC 30 MG/ML VIAL (*BKC) IV PUSH (17:00)
--- NOTE | 2023-07-12 17:47 | W.PM.PROC2 ---
Procedure Note - Detailed Date of Procedure 07/12/23 Pre-op Diagnosis Acute calculous cholecystitis Post-op Diagnosis Same Procedure Performed Laparoscopic Cholecystectomy Surgeon Ty Douglas, Anesthesia General and Local (0.5% bupivacaine) Indications this is a 33-year-old woman who presented to the emergency department in [place] for upper abdominal pain that started a couple days prior. She has been having symptoms like this periodically. Her pain is now more constant. The workup in [place] showed evidence of acute calculous cholecystitis. She was transferred to [facility] for further treatment. Discussions were made with the patient about treatment options and decision was made to proceed with laparoscopic cholecystectomy, possible open. Findings Laparoscopic cholecystectomy was performed. The patient had evidence of acute cholecystitis with a thickened gallbladder wall and some pericholecystic edema. The cystic duct appeared normal in size. There were multiple gallstones within the gallbladder. No other intra-abdominal abnormalities were noted. The gallbladder was removed and sent to the lab for pathology. Description of Procedure Procedure as well as risks, benefits, and alternatives were discussed with patient. Written consent was obtained and placed in chart prior to procedure. The patient was brought back to surgical suite. Patient was placed in supine position on operating table. Time-out was done to confirm patient and procedure. Patient was then intubated by the anesthesia department. Abdomen was prepped and draped in sterile fashion using chlorhexidine prep. 0.5% bupivacaine with epinephrine was infiltrated at each site of incision. A 5 millimeter incision was made near the umbilicus, and a 5 millimeter Optiview trocar was advanced through the abdominal layers under direct visualization. Once inside the abdominal cavity, carbon dioxide was insufflated to create a pneumoperitoneum. The camera was inserted and the abdomen was inspected. No immediate abnormalities were identified. The patient was placed in reverse Trendelenburg position and rotated slightly to the left. An 11 millimeter incision was made in the subxiphoid region, and an 11 millimeter trocar was inserted under direct visualization. Two 5 millimeter incisions were made in the right upper quadrant, and two 5 millimeter trocars were inserted under direct visualization. The gallbladder was identified and grasped at the fundus and retracted superiorly. It was then grasped at the infundibulum retracted laterally. Careful dissection around the neck of the gallbladder was performed using blunt dissection with a [place] grasper and hook electrocautery. The cystic duct was identified, and a window was created behind it. The cystic artery was also identified and a window was created behind it. The critical view of safety was identified, visualizing the cystic duct running directly into the neck of the gallbladder, and the cystic artery running directly into the wall of the gallbladder. A 5 millimeter clip auto clutch specialist was then used to place 2 clips proximally and 1 clip distally on both the cystic duct and cystic artery. They were then both transected using endoscopic scissors. Once safely away from the henrik hepatitis, the gallbladder was dissected free from the liver bed using hook electrocautery. Hemostasis was achieved along the way. The gallbladder was removed completely and then removed through the subxiphoid port. The liver bed was then inspected. Hemostasis appeared adequate, and our clips appeared secure. The area was gently irrigated with sterile saline. No other abnormalities were seen. The patient was flattened out in bed, and 1 final inspection was made around the abdominal cavity. The subxiphoid port was removed, and a Guillaume Sarah cone was used to approximate the fascia with an 0-Vicryl simple interrupted suture. The remaining ports w
[2023-07-12] MEDS: fentaNYL CITRATE INJ (*CRX) 100 MCG/2 ML VIAL 25 MCG IV PUSH ×2 (17:50→17:52)
[2023-07-12] MEDS: LACTATED RINGERS 1,000 ML 100 ML IV CONT (18:47)
[2023-07-12] MEDS: buPROPion HCL SR (12 HR) 150 MG TAB PO (20:39)
[2023-07-13] MEDS: HYDROcodone/acetaminophen (*CRX) 10-325 MG TABLET 1 TAB PO ×3 (01:10→13:33)
[2023-07-13] MEDS: diphenhydrAMINE HCl INJ 50 MG/ML VIAL 25 MG IV PUSH (02:05)
[2023-07-13 02:39] VITALS: BP 115/57; PULSE 84; RESP 20; TEMP 36.2; O2SAT 98
[2023-07-13 03:08] LABS: Glucose Point of Care 169 mg/dl (65-105)
[2023-07-13 05:00] VITALS: BP 111/74; PULSE 93; RESP 20; TEMP 36.6; O2SAT 100
[2023-07-13] MEDS: HYDROcodone/acetaminophen (*CRX) 5-325 MG TABLET 1 TAB PO (06:32)
[2023-07-13] MEDS: ONDANSETRON INJ 4 MG/2 ML VIAL IV PUSH (06:34)
--- NOTE | 2023-07-13 08:01 | WPDANESPN ---
Anes - Prog Note Post-Op Date/Time: 07/13/23 08:01 Cardiovascular status: normal Respiratory status: normal Airway patency: baseline Mental status: baseline Post-Op hydration status: normal Vital Signs: Last Vital Signs Temp 36.6 C 07/13/23 05:00 Pulse 93 07/13/23 05:00 Resp 20 07/13/23 05:00 BP 111/74 07/13/23 05:00 Pulse Ox 100 07/13/23 05:00 O2 Del Method Room Air 07/12/23 20:00 O2 Flow Rate 5 07/12/23 17:45 Pain Score (VAS): 2 I/O: Intake & Output 07/12/23 07/13/23 07/13/23 23:59 07:59 15:59 Intake Total 1140 1550 Output Total 1000 1100 Balance 140 450 Laboratory Tests 07/12/23 05:21 07/12/23 05:21 07/12/23 07/13/23 05:21 03:03 POC Capillary Glucose 169 H Beta HCG, Quant < 2.39 Post-procedural complaints: none Patient Feedback: Patient satisfied with anesthetic care.
[2023-07-13 08:35] VITALS: BP 109/61; PULSE 95; RESP 18; TEMP 36.1; O2SAT 100
[2023-07-13] MEDS: ENOXAPARIN 40 MG/0.4 ML SYRINGE SUB-Q (08:53)
[2023-07-13 10:13] VITALS: BP 111/63; BP 114/46; BP 119/66
--- NOTE | 2023-07-13 12:02 | PM.PNGS ---
Progress Note: A&P Assessment and Plan (1) Acute calculous cholecystitis: Code(s): K80.00 - Calculus of gallbladder with acute cholecystitis without obstruction Status: Acute Assessment and Plan: Postop day 1 laparoscopic cholecystectomy. Tolerating a low-fat diet and minimal incisional pain. If patient is able to tolerate activity, then it is okay to discharge from a surgical standpoint if medically stable. Follow-up with Dr. Douglas in 2 weeks. Plan I have discussed the patient's case and plan of care with Dr. Douglas. Subjective Subjective Date/Time Seen: 07/13/23 09:32 Post Op day: 1 (Laparoscopic cholecystectomy) Patient reports: tolerating a regular diet (Low-fat), voiding w/o difficulty, no flatus, no bowel movement and afebrile Interval history: Patient reports having 3 episodes of feeling lightheaded overnight and this morning. She reports they would occur when she was standing. She would get some if she was going to ?pass out? and then she would sit down and this would pass. She reports also feeling slightly short of breath when this would occur, but again this would resolve quickly. She denies chest pain, abdominal pain, palpitations, or feeling of her heart racing. She reports some mild incisional soreness, but very mild. She reports some shoulder and back pain, which she tried to get up to the recliner after lying in bed all night. She is tolerating a low-fat diet with no nausea or vomiting. No other complaints at this time. Exam Const: General: comfortable and no acute distress Orientation/consciousness: patient oriented x3 Resp: Effort & Inspection: normal respiratory effort Auscultation: clear to auscultation bilaterally Cardio: Rate: regular rate Rhythm: regular rhythm GI: Inspection: non-distended and incision (incisions dry and intact) GI Palp: Yes Soft to palpation, Yes Tenderness to palpation present (GI) (incisional) and No Guarding due to palpation present (GI) Auscultation: normal bowel sounds Neuro: General: moves all extremities and no focal motor deficits Extrem: General: no calf tenderness and no edema Psych: Mental Status: mental status grossly normal Insight: Good insight present (Psych) Objective Data Vital Signs Vital Signs: Vital Signs - 24 hr 07/12/23 15:33 07/12/23 17:17 07/12/23 17:30 Temperature 97.0 F L 97.2 F L Pulse Rate 88 63 Respiratory Rate 20 19 Blood Pressure 111/76 144/74 H Pulse Oximetry 100 100 Oxygen Delivery Simple Face Mask Simple Face Mask Oxygen Flow Rate 8 5 07/12/23 17:45 07/12/23 18:00 07/12/23 18:15 Temperature Pulse Rate 63 70 65 Respiratory Rate 15 15 11 L Blood Pressure 156/76 H 154/87 H 155/88 H Pulse Oximetry 100 97 96 Oxygen Delivery Simple Face Mask Room Air Room Air Oxygen Flow Rate 5 07/12/23 18:29 07/12/23 18:53 07/12/23 19:06 Temperature 97.2 F L 97.5 F L Pulse Rate 61 76 65 Respiratory Rate 16 18 18 Blood Pressure 156/83 H 125/68 136/71 Pulse Oximetry 99 98 100 Oxygen Delivery Room Air Oxygen Flow Rate 07/12/23 22:44 07/12/23 20:00 07/13/23 02:39 Temperature 97.5 F L 97.1 F L Pulse Rate 73 84 Respiratory Rate 21 H 20 Blood Pressure 114/53 L 115/57 L Pulse Oximetry 100 98 Oxygen Delivery Room Air Oxygen Flow Rate 07/13/23 05:00 07/13/23 08:35 07/13/23 08:54 Temperature 97.9 F 97.0 F L Pulse Rate 93 95 Respiratory Rate 20 18 Blood Pressure 111/74 109/61 Pulse Oximetry 100 100 Oxygen Delivery Room Air Oxygen Flow Rate 07/13/23 10:13 07/13/23 10:13 07/13/23 10:13 Temperature Pulse Rate Respiratory Rate Blood Pressure 119/66 111/63 114/46 L Pulse Oximetry Oxygen Delivery Oxygen Flow Rate Intake/Output Intake/Output: Intake & Output 07/10/23 07/11/23 07/12/23 07/13/23 23:59 23:59 23:59 23:59 Intake Total 1080 2440 1790 Output Total 750 2900 1100 Balance 330 -767 690 Meds/Results Medications: Active
[2023-07-13 12:39] VITALS: BP 106/55; PULSE 92; RESP 18; TEMP 36.7; O2SAT 99
--- NOTE | 2023-07-13 14:21 | PM.DS ---
DS: Admitting Diagnosis Discharge Date 07/13/23 Admitting Diagnosis Symptomatic cholelithiasis DS: Discharge Diagnosis Discharge Diagnosis (1) Symptomatic cholelithiasis: Code(s): K80.20 - Calculus of gallbladder without cholecystitis without obstruction Status: Acute (2) Obstructive sleep apnea on CPAP: Code(s): G47.33 - Obstructive sleep apnea (adult) (pediatric) Status: Acute (3) Hypertension: Code(s): I10 - Essential (primary) hypertension Status: Acute DS: Summary Hospital Course Reason for hospitalization: 33yo female with history of symptomatic cholelithiasis, HTN and CHRIS who is being directly admitted to the medical floor from the emergency department at an outside facility with symptomatic cholelithiasis.?Please see H&P for details. Hospital Course: The patient presented to the emergency department the outside facility for evaluation of right upper quadrant pain thay came on after eating fast food. Labs were significant for WBC count of 8.8, Hgb 11.5 platelet 333, sodium 137, potassium 3.2, creatinine 1, glucose 118, lipase [address] scan of the abdomen pelvis showed multiple stones in the gallbladder with what appears to be an obstructing stone at the neck of the gallbladder. No gallbladder wall thickening or pericholecystic fluid was noted. She was transferred to [facility] for general surgery consultation. Patient was admitted and General surgery was consulted. EKG showed no acute changes. Patient was taken to the OR and underwent laparoscopic cholecystectomy on 07/12/2023. She tolerated the procedure well. After the procedure, she had 2-3 episodes of feeling lightheaded when she was walking with some nausea but these symptoms has resolved. Her diet was advanced to low-fat diet and she is tolerating this well without nausea or vomiting. She has been up ambulating in the halls without difficulty. She is asymptomatic with walking now. Family will be at home with her. She is eager for discharge. She overall did well and was able be discharged home on 07/13/2023. Status at Discharge Cognitive/behavioral status at discharge: stable Time Spent with Patient Time attestation: Total time spent providing and/or coordinating discharge services: 32 minutes Time spent: Greater than 30 minutes Exam Narrative: AF 98.0 106/55 92 18 99% ra Gen - NARD Chest - CTA bilaterally, nml RR CV - RRR S1/S2 Abd - Soft, Incisions are clean, dry and intact. Ext - No pedal edema Psych - Nml mood and affect Skin - Warm and dry DS: Data Data Completed and Pending Pending studies at discharge: Pending at discharge 07/12/23 16:39 Surgical [PTH] Routine Labs on day of discharge: Labs from last 24 hours 07/13/23 07/12/23 03:03 05:21 POC Capillary Glucose 169 H Beta HCG, Quant < 2.39 Discharge Plan Discharge Attending physician on discharge: Raymundo Hancock Consulting providers: Ty Jovel Discharging Clinician: Raymundo Hancock Anticipated Discharge Date/Time: 07/13/23 14:29 Patient Disposition: Home, Self-Care Activity: may shower Diet: low fat Discharge Instructions: Remove the Scopolamine patch that was placed behind your ear in 72 hours or less. Wash your hands after touching. DISCHARGE INSTRUCTION SHEET FOR HERNIA, GALLBLADDER AND APPENDIX SURGERIES DR. JOVEL 1. May shower in 24 hours, no soaking in bath x 2weeks. 2. Call office for: Wound increasingly painful or bleeding Vomiting Fever of greater than 101 degrees 3. If no bowel movement for three days, take 1 oz. (30 ml) Milk of Magnesia or MiraLax 17g 1 to 2 times daily. 4. No heavy lifting > 10-15 pounds x 2 weeks for laparoscopic cholecystectomy or appendectomy. 5. No driving for 3 days or while taking narcotic pain medications. 6. Ice to surgical site for 48 hours (30 min on, then 30 min off).
== END 2023-07-13 14:55 | disposition home or self-care (01) ==
PROVIDERS: Anesthesiology; Physician Assistant; Surgery; Admitting Provider Internal Medicine; PCP Nurse Practitioner Family; Visit Provider Internal Medicine
PROC: 0FT44ZZ Resection of Gallbladder, Percutaneous Endoscopic Approach (ICD-10-PCS; CPT 47562; principal; 2023-07-12 16:30)
DX: K80.00 Calculus of gallbladder with acute cholecystitis without obstruction (principal); I10 Essential (primary) hypertension; G47.33 Obstructive sleep apnea (adult) (pediatric); F32.A Depression, unspecified; B00.9 Herpesviral infection, unspecified; Z79.899 Other long term (current) drug therapy
CPT/HCPCS: 47562; 36415; 80053; 82948; 83690; 83735; 84702; 85027; 85610; 85730; 88304; 93005; 96374; 96376; A9270; G0378; J0690; J1100; J1170; J1200; J1650; J1885; J2250; J2270; J2405; J2704; J3010; J7030; J7120

== ENCOUNTER 2024-05-24 10:11 | Outpatient (CLI) | payer OTHER, SELFPAY ==
--- OUTSIDE RECORDS SUMMARY | 2024-05-24 11:36 | XMS_ITS | Encounter Summary ---
Author Organization [facility] Address [facility] [place] [address] Care Team Providers Care Supervisor Locomotive Name Role Phone Bridgett Villafuerte MR TEACHER Primary Care Provider [phone] Noemi Lomas MR TEACHER Primary Care Provider [phone] Rand Emmanuel MD Unavailable [phone] Cindy Galan MD Unavailable [phone] Lamont Olson MD Unavailable [phone] Ty Palomares MD Unavailable [facility] Rand Emmanuel MD Primary Care Provider Encounter Details Date Type Department Care Team (Late st Contact Info) Description 03/27/2020 Abstract [facility] [place] [id number] Ty Palomares MD Social History Tobacco Use Types Packs/Day Years Used Date Smoking Tobacco: Never Smokeless Tobacco: Never Alcohol Use Standard Drinks/Week Comments Yes 0 (1 standard drink = 0.6 oz pur e alcohol) Occasional Comments No Sex and Gender Information Value Date Recorded Sex Assigned at Female 04/07/2024 11:31 AM PERSONAL ASSISTANT Legal Sex Female 4:29 PM CDT Gender Identity Female 12/29/2021 1:01 PM CDT Sexual Orientation Straight 12/29/2021 1: 01 PM CDT Occupation Industry Job Start Date Job End Date Works for [employer] Not on file Not on file Not on f ile documented as of this encounter Plan of Treatment Not on file documented as of this encounter Visit Diagnoses Not on filedocumented in this encounter Additional Health Concerns Infection Onset Date Last Indicated Resolved Time COVID-19 Rule Out 03/01/2022 03/01/2022 03/01/2022 11:44 AM PERSONAL ASSISTANT COVID-19 Confirmed 03/01/2022 03/01/2022 12:32 AM PERSONAL ASSISTANT documented as of this encounter Care Teams Supervisor Locomotive Relationship Specialty Start Date End Date Bridgett Villafuerte NP [facility] [address] [place], [place] [id number] PCP - General NURSE PRACTITIONER 03/14/20 11/05/21 Noemi Lomas NP [address] [place], [place] [id number] PCP - General NURSE PRACTITIONER 11/06/21 11/09/23 Cindy Galan MD [address] [place] [address] PCP - Obstetrics/Gynecology OBGYN 06/24/19 Rand Emmanuel MD [address] [place] [address] PCP - General 11/10/23 Rand Emmanuel MD [address] [place] [address] FAMILY PRACTICE 03/14/20 Lamont Olson MD [address] [place] [address] PEDIATRICS 03/14/20 Ty Palomares MD [address] [place] [address] Consulting Physician CARDIOVASCULAR DISEASE 03/14/20 documented as of this encounter
--- OUTSIDE RECORDS SUMMARY | 2024-05-24 11:36 | XMS_ITS | Clinical Summary ---
Author Organization [facility] Address [address] [place] [address] Care Team Providers Care Rock Wool Applicator Name Role Phone Rand Emmanuel MD Unavailable [phone] Cindy Galan MD Unavailable [phone] Lamont Olson MD Unavailable [phone] Ty Palomares MD Unavailable Unavailabl e Rand Emmanuel MD Primary Care Provider Allergies No known active allergies Medications valACYclovir (VALTREX) 500 MG tablet Take 1 tablet (500 mg total) by mouth daily. 1 Active sertraline (ZOLOFT) 25 MG tablet Take 1 tablet (25 mg total) by mouth daily. Active busPIRone (BUSPAR) 10 MG tablet 3 Active EPINEPHrine 0.3 MG/0.3ML injection 3 Active Semaglutide (RYBELSUS OR) 3 Active buPROPion XL (WELLBUTRIN XL) 300 MG 24 hr tablet Take 1 tablet (300 mg total) by mouth. 4 Active meloxicam (MOBIC) 7.5 MG tablet Take 1 tablet (7.5 mg total) by mouth daily. 30 tablet 4 Active INCASSIA 0.35 MG tablet Take 1 tablet by mouth daily. 4 Active magnesium oxide (MAG-OX) 400 MG tablet TAKE 1 TABLET (400 MG TOTAL) BY MOUTH DAILY. 90 tablet 4 Active potassium chloride (KLOR-CON) 20 MEQ packet Take 1 packet by mouth daily. 90 each 3 4 Active diazePAM (VALIUM) 5 MG tabletIndicatio ns:Vertigo Take 1 tablet (5 mg total) by mouth 2 (two) times daily as needed (for severe vertigo not controlled with meclizine). 10 tablet 4 Active Active Problems Problem Noted Date Diagnosed Date Heart palpitations 04/04/2020 Paroxysmal SVT (supraventricular tachycardia) (H HS/HCC) 04/04/2020 Herpesviral vulvovaginitis 04/01/2017 Bilateral breast lump 09/14/2016 Eustachian tube dysfunction 09/02/2016 Overview (08/13/2018): Date Onset: 09/02/2016 Morbid obesity with body mass index of 45.0-49.9 in adult 09/02/2016 Overview (08/13/2018): Date Onset: 09/02/2016 CHRIS (obstructive sleep apnea) 07/20/2016 GERD (gastroesophageal reflux disease) 7 Excessive daytime sleepiness 07/20/2016 Major depressive disorder, single episode 2013 Overview (04/25/2018): Date Onset: 11/16/2013 Herpes genitalis 06/30/2011 Irritable bowel syndrome 03/18/2011 Encounters Date Type Department Care Team Description 04/07/2024 11:38 AM RN CASE MANAGEMENT - 04/07/2024 11:59 PM RN CASE MANAGEMENT Hospital Encounter [facility] [address] [place] [address] Willie Castillo, PA Discharge Disposition: Home or Self Care (Routine Discharge) 04/07/2024 Orders Only [facility] [address] [place] [address] Willie Castillo PA 04/07/2024 Travel from Last 3 Months Immunizations Name Administration Dates Next Due Afluria 36 MONTHS+ (Prefilled Syringe IIV4) 01/07 Influenza (Generic) 12/09/2011 Influenza Adult (Generic) 12/11/2021,02/16/2017 Tdap (Boostrix) 06/06/2023 Tdap (Generic) 04/27/2013 Family History Medical History Relation Comments Heart Disease Father Hypertension Father Sleep Apnea Father Atrial fibrillation Maternal Grandfather Diabetes Maternal Grandfather Heart Disease Maternal Grandfather Hypertension Maternal Grandfather COPD Maternal Grandmother Diabetes Maternal Grandmother Hypertension Mother Atrial fibrillation Paternal Grandfather Diabetes Paternal Grandfather Diabetes Paternal Grandmother Depression Sister bipolar Relation Status Comments Father Alive Maternal Grandfather Maternal Grandmother Mother Alive Paternal Grandfather Paternal Grandmother Sister Social History Tobacco Use Types Packs/Day Years Used Date Smoking Tobacco: Never Passive Smoke Exposure: Never Smokeless Tobacco: Never Tobacco Cessation:Counseling Given: Not Answered Alcohol Use Standard Drinks/Week Comments Yes 0 (1 standard drink = 0.6 oz pur e alcohol) rare PHQ-2 Answer Date Recorded Patient Health Questionnaire-2 Score 2 04/01/2023 Comments No Sex and Gender Information Value Date Recorded Sex Assigned at Female 04/07/2024 11:31 AM RN CASE MANAGEMENT Legal Sex Female 4:29 PM CDT Gender Identity Female 12/29/2021 1:01 PM CDT Sexual Orientation Straight 12/29/2021 1: 01 PM CDT Occupation Industry Job Start Date Job End Date Works for [employer] Not on file Not on file Not on f [employer] department Not on file Not on file Not on file Last Filed Vital Signs Vital Sign Reading Time Taken Comments Blood Pressure 131/77 01/17/2024 11:16 AM RN CASE MANAGEMENT Pulse 77 01/17/2024 11:16 AM RN CASE MANAGEMENT Temperature 36.2 C (97.1 F) 01/17/2024 11:16 AM RN CASE MANAGEMENT Respiratory Rate 16 01/17/2024 11:16 AM RN CASE MANAGEMENT Oxygen Saturation 98% 01/17/2024 11:16 AM RN CASE MANAGEMENT Inhaled Oxygen Concentration - - Weight 133.4 kg (294 lb) 01/17/2024 10:35 AM RN CASE MANAGEMENT Height 167.6 cm (5' 6 ) 01/17/2024 10:35 AM RN CASE MANAGEMENT Body Mass Index 47.45 01/17/2024 10:35 AM RN CASE MANAGEMENT Plan of Treatment Health Maintenance Due Date Last Done Comments Annual Physical 1993 Hepatitis C 02/10/2008 Hepatitis B Vaccines (1 of 3 - 19+ 3-dose series) 2009 COVID-19 Vaccine ( season) 2023 Influenza Adult (#1) 2023 12/11/2021, 01/26/2019, 02/16/2017, Additional history exists PHQ-2 (Physician [place]) 03/08/2024 04/01/2023 DTaP, Tdap and Td Vaccines (3 - Td or Tdap) 06/05/2033 06/06/2023, 04/27/2013 HPV Vaccines Aged Out No longer eligi ble based on patient's age to complete this topic Meningococcal B Vaccine Aged Out No l onger eligible based on patient's age to complete this topic Meningococcal Vaccine Aged Out No isac elnea eligible based on patient's age to complete this topic Pneumococcal Vaccine: Pediatrics (0 to 5 Years) and At-Risk Patients (6 to 64 Years) Aged Out No longer eligible based on patient's age to complete this topic RSV Immunizations Under 20 Months Aged Out No longer eligible based on patient's age to complete this topic Medical Devices Implanted Type Area Reheat Furnace Operator Device Identifier Shelf Expiration Date Model / Serial / Lot Internalbrace Implant System Implanted:Qty: 1 on 11/13/2021 by Jah Meléndez DPM at [facility] Left: Ankle [id number] 08/06/2023 / / [id number] Fibertak Suture [place] Implanted:Qty: 1 on 11/13/2021 by Jah Meléndez DPM at [facility] Left: Ankle [employer] 03/07/2026 [id number] / / [id number] Fibertak Suture [place] Implanted:Qty: 1 on 11/13/2021 by Jah Meléndez DPM at [facility] Left: Ankle [employer] 03/07/2026 AR-[id number] / / [id number] Fibertak Suture [place] Implanted:Qty: 1 on 11/13/2021 by Jah Meléndez DPM at [facility] Left: Ankle [employer] 07/05/2026 AR-8990ST / / [id number] Explanted Type Area Reheat Furnace Operator Device Identifier Shelf Expiration Date Model / Serial / Lot Fibertak Disposables Explanted:Qty: 1 on 11/13/2021 at [facility] Left: Ankle [employer] 04/07/2026 AR-[id number] / / [id number] Fibertak Disposables Explanted:Qty: 1 on 11/13/2021 at [facility] Left: Ankle [employer] 09/04/2026 [id number] / / [id number] Procedures Procedure Name Priority Date/Time Associated Diagnosis Comments COMPREHENSIVE METABOLIC PANEL Routine 04/07/2024 11:43 AM RN CASE MANAGEMENT Acute migraine THYROID STIM HORMONE TSH Routine 04/07/2024 11:43 AM RN CASE MANAGEMENT Acute migraine CBC W/DIFF AUTOMATED Routine 04/07/2024 11:43 AM RN CASE MANAGEMENT Acute migraine T4, FREE, DIRECT DIALYSIS Routine 04/07/2024 11:43 AM RN CASE MANAGEMENT Acute migraine HEMOGLOBIN, GLYCOSYLATED Routine 04/07/2024 11:43 AM RN CASE MANAGEMENT Acute migraine LIPID PANEL Routine 04/07/2024 11:43 AM RN CASE MANAGEMENT Acute migraine from Last 3 Months Results * T4, FREE, DIRECT DIALYSIS (04/07/2024 11:43 AM RN CASE MANAGEMENT) T4 FREE DIRECT DIALYSIS 1.6 0.9 - 2.2 ng/dL 04/12/2024 2:11 PM RN CASE MANAGEMENT [facility] Comment: reference ranges: First Trimester: 0.9-2.0 ng/dL Second Trimester: 0.8-1.5 ng/dL Third Trimester: 0.8-1.7 ng/dL This test was developed and its analytical performance characteristics have been determined by [facility] [place], [place]. It has not been cleared or approved by the U.S. Food and Drug Administration. This assay has been validated pursuant to the CLIA regulations and is used for clinical purposes. Test Performed by [facility], [facility], [address] [place] [address] Perico Contreras M.D., Ph.D., Director of Laboratories , CLIA [id number] 04/07/2024 11:4 3 AM RN CASE MANAGEMENT [facility] Final Resu lt Performing Organization Address City/[facility]/ZIP Co de Phone Number [facility] [address] , [place] [phone] * HEMOGLOBIN, GLYCOSYLATED (04/07/2024 11:43 AM RN CASE MANAGEMENT) HGB A1C 4.5 <5.7 % 04/07/2024 10:00 PM RN CASE MANAGEMENT [facility] Comment: ADA GUIDELINES 2010 5.7 TO 6.4% INCREASED RISK OF DIABETES > OR = 6.5% CONSISTENT WITH DIABETES ESTIMATED AVG GLUCOSE 82 mg/dL 04/07/2024 10:00 PM RN CASE MANAGEMENT [facility] 04/07/2024 11:4 3 AM RN CASE MANAGEMENT [facility] Final Resu lt [facility] [address] [place] [address], [place] [phone] * COMPREHENSIVE METABOLIC PANEL (04/07/2024 11:43 AM RN CASE MANAGEMENT) GLUCOSE 94 70 - 99 MG/DL 04/07/2024 12:25 PM RN CASE MANAGEMENT [facility] BUN 11 7 - 18 MG/DL 04/07/2024 12:25 PM RN CASE MANAGEMENT [facility] CREATININE S/P/B 0.83 0.50 - 1.20 MG/DL 04/07/2024 12:25 PM RN CASE MANAGEMENT [facility] SODIUM S/P/B 139 136 - 145 MMOL/L 04/07/2024 12:25 PM [facility] POTASSIUM S/P/B 4.0 3.5 - 5.1 MMOL/L 04/07/2024 12:25 PM [facility] CHLORIDE S/P/B 102 100 - 108 MMOL/L 04/07/2024 12:25 PM [facility] CO2 28.0 21.0 - 32.0 MMOL/L 04/07/2024 12:25 PM [facility] CALCIUM S/P/B 8.7 8.5 - 10.1 MG/DL 04/07/2024 12:25 PM [facility] BILIRUBIN TOTAL S/P/B 0.4 0.2 - 1.2 MG/DL 04/07/2024 12:25 PM [facility] Comment: THIS ASSAY IS NOT RECOMMENDED FOR PATIENTS UNDERGOING TREATMENT WITH ELTROMBOPAG DUE TO THE POTENTIAL FOR FALSELY ELEVATED RESULTS. TOTAL PROTEIN S/P/B 7.4 6.4 - 8.2 G/DL 04/07/2024 12:25 PM [facility] ALBUMIN S/P/B 3.8 3.4 - 5.0 G/DL 04/07/2024 12:25 PM [facility] AST 19 15 - 37 U/L 04/07/2024 12:25 PM [facility] ALT 26 14 - 55 U/L 04/07/2024 12:25 PM [facility] ALKALINE PHOSPHATASE S/P/B 99 50 - 136 U/L 04/07/2024 12:25 PM [facility] ANION GAP 9.0 5.0 - 15.0 MMOL/L 04/07/2024 12:25 PM [facility] BUN CREATININE RATIO 13.3 6 - 26 04/07/2024 12:25 PM [facility] A/G RATIO 1.1 1.0 - 2.5 RATIO 04/07/2024 12:25 PM [facility] GFR ESTIMATE >90 >90 ML/MIN/1.7 3 M2 04/07/2024 12:25 PM [facility] Comment: NOTE: eGFR is not calculated for patients <18 years of age. This is an estimated GFR calculation using the new CKD EPI creatinine equation without race and so does not require a correction factor for race. This estimated GFR should not be used for calculating drug doses. 04/07/2024 11:4 3 AM RN CASE MANAGEMENT us [facility] Final Resu lt [facility] [address] [place] [address], * (ABNORMAL) LIPID PANEL (04/07/2024 11:43 AM RN CASE MANAGEMENT) CHOLESTEROL 156 <200 MG/DL 04/07/2024 8:21 PM [facility] TRIGLYCERIDES 126 <150 MG/DL 04/07/2024 8:21 PM [facility] HDL 38(L) >40.0 MG/DL 04/07/2024 8:21 PM [facility] LDL (CALCULATED) 93 <100 MG/DL 04/07/19 25 8:21 PM [facility] NON HDL CHOLESTEROL 118 <130 MG/DL 04/07 8:21 PM [facility] CHOL/HDL RATIO 4.1 0.0 - 4.5 04/07/2024 8:21 PM [facility] VLDL CALCULATION 25 5 - 55 MG/DL 04/07/2024 8:21 PM [facility] LIPID INTERPRETATION 04/07/2024 8:21 PM RN CASE MANAGEMENT [facility] Comment: NIH CONCENSUS REPORT RECOMMENDATIONS: ADULT CHILD LOW RISK: CHOLESTEROL <200 <170 TRIGLYCERIDE <150 --- HDL >=60 --- LDL <100 <110 BORDERLINE: CHOLESTEROL 200-239 170-199 TRIGLYCERIDE 150-199 --- HDL 40-59 --- LDL 100-159 110-129 HIGH RISK: CHOLESTEROL >=240 >=200 TRIGLYCERIDE >=200 --- HDL <40 --- LDL >=160 >=130 04/07/2024 11:4 3 AM RN CASE MANAGEMENT us [facility] Final Resu lt [facility] [address] [place] [address], [place] [phone] * CBC W/DIFF AUTOMATED (04/07/2024 11:43 AM RN CASE MANAGEMENT) WBC 7.30 4.50 - 11.00 x10'3/uL 04/07/2024 11:56 AM [facility] RBC 4.04 4.00 - 5.20 x10'6/uL 04/07/2024 11:56 AM [facility] HGB 13.2 12.0 - 16.0 G/DL 04/07/2024 11:56 AM [facility] HCT 39.2 38.0 - 48.0 % 04/07/2024 11:56 AM [facility] MCV 97.0 80.0 - 100.0 FL 04/07/2024 11:56 AM [facility] MCH 32.7 26.0 - 34.0 PG 04/07/2024 11:56 AM [facility] MCHC 33.7 31.0 - 37.0 G/DL 04/07/2024 11:56 AM [facility] RDW 11.9 11.6 - 14.8 % 04/07/2024 11:56 AM [facility] PLT 314 130 - 400 x10'3/uL 04/07/2024 11:56 AM [facility] MPV 9.1 7.0 - 12.0 FL 04/07/2024 11:56 AM [facility] CBC COMMENT AUTOMATED RBC MORPHOLOGY AND PLATELET EVALUATION NORMAL 04/07/2024 11:56 AM [facility] NEUTROPHILS % 68.9 40.0 - 74.0 % 04/07/2024 11:56 AM [facility] LYMPHOCYTES % 22.5 14.0 - 46.0 % 04/07/2024 11:56 AM [facility] MONOCYTES % 5.9 4.0 - 13.0 % 04/07/2024 11:56 AM [facility] EOSINOPHILS 2.1 0.0 - 7.0 % 04/07/2024 11:56 AM [facility] BASOPHILS 0.3 0.0 - 3.0 % 04/07/2024 11:56 AM [facility] IMMATURE GRANS % 0.3 0.0 - 0.43 % 04/07/2024 11:56 AM [facility] NRBC % 0.0 % 04/07/2024 11:56 AM [facility] ABS. NEUTROPHILS TOTAL 5.04 1.69 - 7.81 x10'3/uL 04/07/2024 11:56 AM [facility] ABS. LYMPHOCYTES 1.64 0.21 - 5.42 x10'3/uL 04/07/2024 11:56 AM [facility] ABS. MONOCYTES 0.43 0.04 - 1.37 x10'3/uL 04/07/2024 11:56 AM [facility] ABS. EOSINOPHILS 0.15 0.00 - 0.68 x10'3/uL 04/07/2024 11:56 AM [facility] ABS. BASOPHILS 0.02 0.00 - 0.08 x10'3/uL 04/07/2024 11:56 AM RN CASE MANAGEMENT [facility] ABS. IMMATURE GRANULOCYTES 0.02 0.00 - 0.06 x10'3/uL 04/07/2024 11:56 AM RN CASE MANAGEMENT [facility] ABS. NUCLEATED RBC'S 0.00 0.00 - 0.01 x10'3/uL 04/07/2024 11:56 AM RN CASE MANAGEMENT [facility] 04/07/2024 11:4 3 AM RN CASE MANAGEMENT [facility] Final Resu lt [facility] [address] [place] [address], * THYROID STIM HORMONE TSH (04/07/2024 11:43 AM RN CASE MANAGEMENT) TSH 1.760 0.358 - 3.74 uIU/ML 04/07/2024 8:21 PM RN CASE MANAGEMENT [facility] Comment: HIGH DOSES OF BIOTIN MAY INTERFERE WITH THIS TEST RESULT. CORRELATION TO CLINICAL HISTORY AND PRESENTATION RECOMMENDED. 04/07/2024 11:4 3 AM RN CASE MANAGEMENT [facility] Cast[facility] [place] [facility] Final Resu lt [facility] [address] [place] [address], from Last 3 Months Insurance [employer] Advance Directives Documents on File Type Date Recorded Patient Publishing Systems Analyst Expl anation Advance Directives and Living Will 09/02/2017 12:00 AM ADVANCED DIRECTIVES Advance Directives and Living Will 05/21/2014 12:00 AM ADVANCED DIRECTIVES Advance Directives and Living Will 05/14/2014 12:00 AM ADVANCED DIRECTIVES Advance Directives and Living Will 10/25/2013 12:00 AM ADVANCED DIRECTIVES Advance Directives and Living Will 06/19/2013 12:00 AM ADVANCED DIRECTIVES Advance Directives and Living Will 05/17/2013 12:00 AM ADVANCED DIRECTIVES Care Teams Rock Wool Applicator Relationship Specialty Start Date End Date Cindy Galan MD [address] [place] [address] PCP - Obstetrics/Gynecology OBGYN 06/24/19 Rand Emmanuel MD [address] [place] [place], [place] [id number] PCP - General 11/10/23 Rand Emmanuel MD [address] [place] [address] FAMILY PRACTICE 03/14/20 Lamont Olson MD [address] [place] [address] PEDIATRICS 03/14/20 Ty Palomares MD [address] [place] [address] Consulting Physician CARDIOVASCULAR DISEASE 03/14/20
--- OUTSIDE RECORDS SUMMARY | 2024-05-24 11:36 | XMS_ITS | Clinical Summary ---
Author Organization [facility] [employer] Address [address] [place] [address] Care Team Providers Care Valet Attendant Name Role Phone Unavailable Primary Care Provider Unavailabl e Source Comments [facility],non-owned Affiliates and Associated Physician Practices is amultiple site organization consisting of ambulatory clinics and hospital sitesin [place], [place], [place] and [place]. This disclosure is being madepursuant to the Care Everywhere program and may not contain all information available regarding this patient. Last updated 17.[facility] [employer] Medications * Be aware that medications may not be up to date on this document. Alwaysverify current medications with the patient. Medication Sig Dispensed Refills Start Date End Date Status citalopram (CELEXA) 20 MG tablet 09/20/2020 Active valACYclovir (VALTREX) 500 MG tablet 09/20/2020 Active Family History Medical History Relation Name Comments Blood Clots Father CAD (Coronary Artery Disease) Father Hyperlipidemia Father Hypertension Father CAD (Coronary Artery Disease) Maternal Grandfather Diabetes; unknown type Maternal Grandfather Hypertension Maternal Grandfather Arthritis - Rheumatoid Mother Hypertension Mother Migraine Mother Blood Clots Paternal Grandfather CAD (Coronary Artery Disease) Paternal Grandfather Heart Failure Paternal Grandfather Relation Name Status Comments Father Maternal Grandfather Mother Paternal Grandfather Social History Tobacco Use Types Packs/Day Years Used Date Smoking Tobacco: Never Assessed Sex and Gender Information Value Date Recorded Sex Assigned at Not on file Gender Identity Not on file Sexual Orientation Not on file Plan of Treatment Health Maintenance Due Date Last Done Comments PAP SMEAR 1990 HIV SCREENING 2005 HEPATITIS C SCREENING 02/05/2008 DTAP/TDAP/TD VACCINES (1 - Tdap) 2009 HEPATITIS B VACCINE (1 of 3 - 19+ 3-dose series) 2009 COVID-19 VACCINE (2023-2 5 season) 2023 INFLUENZA VACCINE (#1) 2023 DEPRESSION SCREENING 03/08/2024 ZOSTER VACCINE (1 of 2) 02/10/2040 HIB VACCINE Aged Out No longer eligi ble based on patient's age to complete this topic HPV VACCINE Aged Out No longer eligi ble based on patient's age to complete this topic MENINGOCOCCAL (Group B) VACC INE SHARED DECISION-MAKING Aged Out No longer eligibl e based on patient's age to complete this topic MENINGOCOCCAL GROUPS A/C/Y/W VACCINE Aged Out No longer eligible b ased on patient's age to complete this topic PNEUMOCOCCAL VACCINE Aged Out No long er eligible based on patient's age to complete this topic FIDELIA CRAVEN IE Personal/Family [address] [place] [id number] FIDELIA CRAVEN IE Personal/Family [address] [place] [id number] FIDELIA CRAVEN IE Personal/Family [address] [place] [id number] Kat Craevn Personal/Family Self [address] [place] [id number]
[2024-05-27 18:38] LABS: Testosterone Total 25 ng/dL (2-45)
== END 2024-05-24 10:12 | disposition home or self-care (01) ==
LOC: ANHLAB 10:13
PROVIDERS: PCP Student in an Organized Health Care Education/Training Program; Visit Provider Student in an Organized Health Care Education/Training Program
DX: L68.0 Hirsutism (principal)
CPT/HCPCS: 36415; 84403